=== PATIENT | female | born 1980 | race Caucasian/White ===

== ENCOUNTER 2025-05-12 06:12 | Observation (INO) ==
--- NOTE | 2025-04-15 15:32 | PAT Medication Instructions ---
Medication Instructions Date of Service April 15, 2025 Home Medications Medication Instructions Recorded blood-glucose meter (OneTouch #1 ea 11/18/21 Verio Flex Start kit) lidocaine 5 % topical ointment 1 applic topical BID PRN pain #30 12/24/21 grams epinephrine 0.3 mg/0.3 mL 0.3 mg (0.3 mL) IM Q10M PRN 09/21/22 injection, auto-injector (EpiPen) Anaphylaxis #2 ea lancets 33 gauge (OneTouch Delica #100 ea 07/13/23 Plus Lancet) syringe with needle, safety 3 mL #12 ea 10/09/23 25 gauge x 1" (BD Integra Syringe) Dexcom G6 Sensor (blood-glucose #3 ea 01/30/24 sensor) lorazepam 1 mg tablet 1 mg PO TID PRN anxiety #90 tabs 08/21/24 Dexcom G6 Transmitter #1 ea 08/27/24 (blood-glucose transmitter) blood sugar diagnostic (OneTouch #25 ea 09/12/24 Verio test strips) oxycodone 5 mg tablet 5 mg PO Q6H PRN pain #30 tabs 02/11/25 Ozempic 1 mg/dose (4 mg/3 mL) 1 mg (0.75 mL) subcut Q7D #9 mL 03/19/25 subcutaneous pen injector (semaglutide) esomeprazole magnesium 40 mg 40 mg PO BID #180 caps 03/25/25 capsule,delayed release linaclotide 145 mcg capsule 145 mcg PO DAILY #90 caps 03/25/25 (Linzess) sucralfate 1 gram tablet 1 g PO Q6H PRN acid reflux #360 03/25/25 tabs verapamil 120 mg tablet,extended 120 mg PO HS #90 tabs 03/25/25 release atorvastatin 40 mg tablet 40 mg PO HS #90 tabs 03/28/25 cyanocobalamin (vitamin B-12) 1,000 mcg subcut Q30D #10 mL 03/28/25 1,000 mcg/mL injection solution venlafaxine 75 mg capsule,extended 75 mg PO HS #90 caps 03/28/25 release 24 hr (Effexor XR) sucralfate 100 mg/mL oral 10 ml PO QID 3 months #3,600 mL 03/31/25 suspension (Carafate) amitriptyline 10 mg tablet 20 mg (2 x 10 mg) PO HS #180 tabs 04/01/25 estradiol 2 mg tablet 2 mg PO HS #90 tabs 04/02/25 famotidine 40 mg tablet 40 mg PO DAILY #90 tabs 04/04/25 ondansetron 4 mg disintegrating 4 mg PO Q8H PRN Nausea #30 tabs 04/06/25 tablet rimegepant 75 mg disintegrating 75 mg PO ONCE PRN migraine 04/06/25 tablet (Nurtec ODT) headache #8 tabs peg 3350-sod [id number] See Rx Instructions PO .COMPLEX #2 04/14/25 178.7-7.3-0.5-1.12-0.9 gram oral mL soln (Suflave) Medications albuterol sulfate 90 mcg/actuation aerosol inhaler (Ventolin HFA) 2 puff inhalation Q6H PRN Shortness Of Breath montelukast 10 mg tablet 10 mg PO QAM omalizumab 150 mg subcutaneous solution (Xolair) 300 mg subcut Q28D pregabalin 300 mg capsule 300 mg PO HS lidocaine 5 % topical ointment 1 applic topical BID PRN pain fluticasone fur. 100 mcg-umeclid 62.5 mcg-vilant 25 mcg inhalat.powder (Trelegy Ellipta) 1 inh inhalation HS epinephrine 0.3 mg/0.3 mL injection, auto-injector (EpiPen) 0.3 mg (0.3 mL) IM Q10M PRN Anaphylaxis pregabalin 100 mg capsule 100 mg PO BID theanine 100 mg capsule 400 mg PO HS lorazepam 1 mg tablet 1 mg PO TID PRN anxiety venlafaxine 150 mg capsule,extended release 24 hr 150 mg PO HS glucagon 3 mg/actuation nasal spray (Baqsimi) 3 mg intranasal UD PRN Hypoglycemia cholecalciferol (vitamin D3) 125 mcg (5,000 unit) tablet (Vitamin D3) 125 mcg PO DAILY celecoxib 200 mg capsule (Celebrex) 200 mg PO HS Pain oxycodone 5 mg tablet 5 mg PO Q6H PRN pain Ozempic 1 mg/dose (4 mg/3 mL) subcutaneous pen injector (semaglutide) 1 mg (0.75 mL) subcut Q7D esomeprazole magnesium 40 mg capsule,delayed release 40 mg PO BID linaclotide 145 mcg capsule (Linzess) 145 mcg PO DAILY sucralfate 1 gram tablet 1 g PO Q6H PRN acid reflux verapamil 120 mg tablet,extended release 120 mg PO HS atorvastatin 40 mg tablet 40 mg PO HS cyanocobalamin (vitamin B-12) 1,000 mcg/mL injection solution 1,000 mcg subcut Q30D venlafaxine 75 mg capsule,extended release 24 hr (Effexor XR) 75 mg PO HS sucralfate 100 mg/mL oral suspension (Carafate) 10 ml PO QID 3 months amitriptyline 10 mg tablet 20 mg (2 x 10 mg) PO HS estradiol 2 mg tablet 2 mg PO HS famotidine 40 mg tablet 40 mg PO DAILY ondansetron 4 mg disintegrating tablet 4 mg PO Q8H PRN Nausea rimegepant 75 mg disintegrating tablet (Nurtec ODT) 75 mg PO ONCE PRN migraine headache MEDICATION INSTRUCTIONS: Continue as directed cyanocobalamin (vitamin B-12) 1,000 mcg/mL injection solution 1,000 mcg subcut glucagon 3 mg/actuation nasal spray (Baqsimi) 3 mg intranasal UD PRN Hypoglycemia albuterol sulfate 90 mcg/actuation aerosol inhaler (Ventolin HFA) 2 puff inhalation Q6H PRN Shortness Of Breath (use if needed; BRING TO HOSPITAL) lidocaine 5 % topical ointment 1 applic topical BID PRN pain (do not apply after bathing prior to surgery) fluticasone fur. 100 mcg-umeclid 62.5 mcg-vilant 25 mcg inhalat.powder (Trelegy Ellipta) 1 inh inhalation HS epinephrine 0.3 mg/0.3 mL injection, auto-injector (EpiPen) 0.3 mg (0.3 mL) IM Q10M PRN Anaphylaxis rimegepant 75 mg disintegrating tablet (Nurtec ODT) 75 mg PO ONCE PRN migraine headache ASK your surgeon for instructions celecoxib 200 mg capsule (Celebrex) 200 mg PO HS Pain estradiol 2 mg tablet 2 mg PO HS STOP taking 2 weeks before surgery theanine 100 mg capsule 400 mg PO HS DO NOT take the morning of surgery sucralfate 1 gram tablet 1 g PO Q6H PRN acid reflux sucralfate 100 mg/mL oral suspension (Carafate) 10 ml PO QID cholecalciferol (vitamin D3) 125 mcg (5,000 unit) tablet (Vitamin D3) 125 mcg PO DAILY linaclotide 145 mcg capsule (Linzess) 145 mcg PO DAILY Take morning of surgery With a small sip of water, OTHERWISE NOTHING TO EAT OR DRINK AFTER MIDNIGHT: famotidine 40 mg tablet 40 mg PO DAILY montelukast 10 mg tablet 10 mg PO QAM ondansetron 4 mg disintegrating tablet 4 mg PO Q8H PRN Nausea oxycodone 5 mg tablet 5 mg PO Q6H PRN pain esomeprazole magnesium 40 mg capsule,delayed release 40 mg PO BID lorazepam 1 mg tablet 1 mg PO TID PRN anxiety pregabalin 100 mg capsule 100 mg PO BID Take evening before surgery amitriptyline 10 mg tablet 20 mg (2 x 10 mg) PO HS verapamil 120 mg tablet,extended release 120 mg PO HS venlafaxine 150 mg capsule,extended release 24 hr 150 mg PO HS venlafaxine 75 mg capsule,extended release 24 hr (Effexor XR) 75 mg PO HS pregabalin 300 mg capsule 300 mg PO HS atorvastatin 40 mg tablet 40 mg PO HS ondansetron 4 mg disintegrating tablet 4 mg PO Q8H PRN Nausea oxycodone 5 mg tablet 5 mg PO Q6H PRN pain esomeprazole magnesium 40 mg capsule,delayed release 40 mg PO BID lorazepam 1 mg tablet 1 mg PO TID PRN anxiety pregabalin 100 mg capsule 100 mg PO BID sucralfate 1 gram tablet 1 g PO Q6H PRN acid reflux sucralfate 100 mg/mL oral suspension (Carafate) 10 ml PO QID Other Notes As discussed during RN phone call, last dose to be 05/03/25 of: Ozempic 1 mg/dose (4 mg/3 mL) subcutaneous pen injector (semaglutide) 1 mg (0.75 mL) subcut Q7D ASK your prescriber for instructions: omalizumab 150 mg subcutaneous solution (Xolair) 300 mg subcut Q28D If you have any questions please call us at [phone] or [phone] or [phone] or [phone]
--- NOTE | 2025-04-22 10:46 | Anesthesiology Consultation ---
Date of Service April 22, 2025 Assessment & Plan (1) Encounter for pre-operative examination: - Check BSG DOS - Infectious disease screening: Per assessment on 04/22/25- No known recent infectious disease contacts or current infectious disease symptoms. - GLP-1 medication instructions: Patient informed by PAT to stop 7 days prior to surgery- voiced understanding. DOS 05/12. Advised last dose to be 05/03. - S/P Removal SCS (02/11/25): Grade 2 view, MAC#3, ETT 7.0 at [facility] - Awaiting surgeon-ordered PCP preop evaluation ([facility], appt done 04/22- note in draft). Patient otherwise acceptable risk for surgery. Chart Review Chart Review: Patient seen in Pre Admission Testing Teaching & Discussion Pre-Anesthesia Teaching/Discussion Notes: Instructed NPO after midnight before surgery,except medications with 15 cc of water. Medication instructions provided according to the PAT guidelines. History Surgery Operation Date: 05/12/25 13:25 Proposed Procedures p C6-C7 Anterior Cervical Discectomy and Fusion - Darío Siu DO Height/Weight Height: 5 ft 4 in Weight: 89.3 kg Allergies Allergy/AdvReac Type Severity Reaction Status Date / Time banana Allergy Severe Anaphylaxis Verified 04/22/25 08:15 kiwi Allergy Severe Anaphylaxis Verified 04/22/25 08:15 venom-honey bee Allergy Severe Anaphylaxis Verified 04/22/25 08:15 watermelon Allergy Severe Anaphylaxis Verified 04/22/25 08:15 latex Allergy Intermediate Rash Verified 04/22/25 08:15 Medications Home Medications Medication Instructions Recorded Confirmed Last Taken albuterol sulfate 90 mcg/actuation 2 puff inhalation Q6H PRN 06/28/21 04/22/25 2 Days Ago aerosol inhaler (Ventolin HFA) Shortness Of Breath ~02/09/25 montelukast 10 mg tablet 10 mg PO QAM 06/28/21 04/22/25 02/10/25 06:00 omalizumab 150 mg subcutaneous 300 mg subcut Q28D 06/28/21 04/22/25 3 Weeks Ago solution (Xolair) ~01/21/25 pregabalin 300 mg capsule 300 mg PO HS 06/30/21 04/16/25 02/10/25 21:00 blood-glucose meter (CodeshipTouch #1 ea 11/18/21 04/16/25 Unknown Verio Flex Start kit) lidocaine 5 % topical ointment 1 applic topical BID PRN pain #30 12/24/21 04/16/25 3 Weeks Ago grams ~01/21/25 fluticasone fur. 100 mcg-umeclid 1 inh inhalation HS 05/25/22 04/22/25 02/10/25 21:00 62.5 mcg-vilant 25 mcg inhalat.powder (Trelegy Ellipta) epinephrine 0.3 mg/0.3 mL 0.3 mg (0.3 mL) IM Q10M PRN 09/21/22 04/22/25 06/11/24 injection, auto-injector (EpiPen) Anaphylaxis #2 ea lancets 33 gauge (OneTouch Delica #100 ea 07/13/23 04/16/25 Unknown Plus Lancet) syringe with needle, safety 3 mL #12 ea 10/09/23 04/16/25 Unknown 25 gauge x 1" (BD Integra Syringe) pregabalin 100 mg capsule 100 mg PO BID 01/11/24 04/22/25 02/10/25 14:00 theanine 100 mg capsule 400 mg PO HS 01/11/24 04/22/25 02/10/25 21:00 Dexcom G6 Sensor (blood-glucose #3 ea 01/30/24 04/16/25 Unknown sensor) lorazepam 1 mg tablet 1 mg PO TID PRN anxiety #90 tabs 08/21/24 04/22/25 02/10/25 21:00 venlafaxine 150 mg 150 mg PO HS 08/21/24 04/22/25 02/10/25 21:00 capsule,extended release 24 hr Dexcom G6 Transmitter #1 ea 08/27/24 04/16/25 Unknown (blood-glucose transmitter) glucagon 3 mg/actuation nasal 3 mg intranasal UD PRN Hypoglycemia 09/09/24 04/22/25 Unknown spray (Baqsimi) blood sugar diagnostic (OneTouch #25 ea 09/12/24 04/16/25 Unknown Verio test strips) celecoxib 200 mg capsule (Celebrex) 200 mg PO HS Pain 01/28/25 04/22/25 02/10/25 21:00 Ozempic 1 mg/dose (4 mg/3 mL) 1 mg (0.75 mL) subcut Q7D #9 mL 03/19/25 04/22/25 Unknown subcutaneous pen injector (semaglutide) esomeprazole magnesium 40 mg 40 mg PO BID #180 caps 03/25/25 04/22/25 Unknown capsule,delayed release linaclotide 145 mcg capsule 145 mcg PO DAILY #90 caps 03/25/25 04/22/25 Unknown (Linzess) verapamil 120 mg tablet,extended 120 mg PO HS #90 tabs 03/25/25 04/22/25 Unknown release atorvastatin 40 mg tablet 40 mg PO HS #90 tabs 03/28/25 04/22/25 Unknown cyanocobalamin (vitamin B-12) 1,000 mcg subcut Q30D #10 mL 03/28/25 04/22/25 Unknown 1,000 mcg/mL injection solution venlafaxine 75 mg capsule,extended 75 mg PO HS #90 caps 03/28/25 04/22/25 Unknown release 24 hr (Effexor XR) sucralfate 100 mg/mL oral 10 ml PO QID 3 months #3,600 mL 03/31/25 04/22/25 Unknown suspension (Carafate) amitriptyline 10 mg tablet 20 mg (2 x 10 mg) PO HS #180 tabs 04/01/25 04/22/25 Unknown estradiol 2 mg tablet 2 mg PO HS #90 tabs 04/02/25 04/22/25 Unknown ondansetron 4 mg disintegrating 4 mg PO Q8H PRN Nausea #30 tabs 04/06/25 04/22/25 Unknown tablet rimegepant 75 mg disintegrating 75 mg PO ONCE PRN migraine 04/06/25 04/22/25 Unknown tablet (Nurtec ODT) headache #8 tabs peg 3350-sod [id number] See Rx Instructions PO .COMPLEX #2 04/14/25 Unknown 178.7-7.3-0.5-1.12-0.9 gram oral mL soln (Suflave) buprenorphine HCl 300 mcg buccal 300 mcg buccal Q12H 04/16/25 04/22/25 Unknown film (Belbuca) oxycodone 5 mg tablet 5 mg PO BID PRN Breakthrough Pain 04/16/25 04/22/25 Unknown cholecalciferol (vitamin D3) 125 250 mcg PO DAILY 04/22/25 04/22/25 Unknown mcg (5,000 unit) tablet (Vitamin D3) famotidine 40 mg tablet 40 mg PO BID 04/22/25 Unknown ferrous sulfate 325 mg (65 mg 325 mg PO DAILY 04/22/25 04/22/25 Unknown iron) tablet,delayed release Past Medical History Medical History Abnormal weight gain Anastomotic ulcer Anemia s/p iron infusions in past no recent issues Anxiety and depression Arthritis Asthma Cervicalgia Chronic back pain Diabetes mellitus, type 2 Fibromyalgia GERD (gastroesophageal reflux disease) well controlled and stable History of blood transfusion x2, after and after hysterectomy (required 5 units post up due to heavy bleeding) History of CVA with residual deficit (05/21/22) Received tPA in ED; no residual effects Follows with [facility] History of kidney stones No recent issues HLD (hyperlipidemia) Hx of renal calculi Hypoglycemia after GI (gastrointestinal) surgery IBS (irritable bowel syndrome) Intermittent palpitations R/t anxiety per patient Migraine Mild sleep apnea No device Neuropathy Hands/feet Peptic ulcer disease Postsurgical dumping syndrome After gastric bypass surgery "directly coorelated with my diabetic problems" per records PTSD (post-traumatic stress disorder) Restless leg syndrome Seasonal allergies Exercise / Class Metabolic Activity II 4-5 Yardwork/Stairs/Walk up hill (one FS: No CP, no SOB) Past Family History Family History Mother Diabetes DM Type 2 Family history of reaction to anesthesia vomiting Father Diabetes DM Type 2 Heart disease Hypertension Grandfather (Paternal) Diabetes DM Type 2 Grandmother (Maternal) Diabetes DM Type 2 Grandmother (Paternal) Hypertension Aunt Hypertension Grandfather (Maternal) Bone cancer Family/Other Breast cancer Maternal Great Aunt Other Cancer Denies family history of Ovarian cancer Prostate cancer Myocardial infarction Colorectal cancer Past Surgical History Surgical History H/O cystoscopy x4 H/O gastric bypass (2014) diane-en-y H/O lumbar discectomy (2023) laminectomy and discectomy H/O tubal ligation x2 H/O: x4 History of anesthesia reaction slow to wake up History of cardiac cath 2014- [facility] prior to gastric bypass, no stents 2018- no stents History of cholecystectomy History of colonoscopy (12/08/20) History of dilatation and curettage x3 History of esophagogastroduodenoscopy (EGD) (10/16/24) History of hysterectomy (2018) History of lithotripsy History of lumbar spinal fusion (2007) L5-S1, 2008 History of placement of ear tubes History of radiofrequency ablation (RFA) of nerve of cervical spine x4 History of reversal of tubal ligation History of tonsillectomy and adenoidectomy History of total hysterectomy with bilateral salpingo-oophorectomy (BSO) History of wisdom tooth extraction Previous back surgery nerve blocks S/P cubital tunnel release left elbow Spinal cord stimulator status (09/13/24) x6 surgeries total Removal SCS (02/11/25): Grade 2 view, MAC#3, ETT 7.0 at [facility] Past Anesthesia History No Family Hx of Anesthesia Complications and Other (Slow to wake) History of PONV No Hx of PONV and No Hx of Motion Sickness Social History Smoking Status: Current every day smoker tobacco type: cigarettes Smoking cigarettes per day: 1 PPD Do You Dip or Chew Tobacco: No Hx Alcohol Use: No Hx Substance Use: No substance use type: does not use Review of Systems Patient denies chest pain, shortness of breath, dyspnea on exertion, fever, chills, cough, wheezing, palpitations. Physical Exam Vital Signs BP 106/67 P 71 TEMP 98.0 SP02 96%RA RESP 16 Physical Full cervical extension range of motion. Full TMJ range of motion. TMD > 3.5 finger breaths Mallampati Score I Dentition: intact Lungs: clear throughout to auscultation Cardiac: regular rate and rhythm, no murmurs noted Spine: normal Carotid arteries: negative bruit Extremities: no LE edema Lab Results Anesthesia Preop Results Results Anesthesia Widget: WBC 9.79 K/ul (4.8-10.8) 04/22/25 Hgb 12.9 g/dl (12.0-16.0) 04/22/25 Hct 38.4 % (37.0-47.0) 04/22/25 Plt 282 K/uL (130-400) 04/22/25 Na 138 mmol/L (136-145) 04/22/25 K 3.8 mmol/L (3.5-5.1) 04/22/25 Cl 104 mmol/L (98-107) 04/22/25 CO2 27 mmol/L (21-32) 04/22/25 BUN 13 mg/dl (6-23) 04/22/25 Creat 0.58 mg/dl (0.6-1.2) L 04/22/25 Glucose Level 93 mg/dl (70-99(Fasting)) 04/22/25 PT 10.0 Seconds (9.0-12.0) 04/22/25 PTT 27 Seconds (21-31) 04/22/25 INR 0.9 (0.9-1.1) 04/22/25 HA1c 6.1 % (4.5-5.6) H 04/22/25 Blood Type A Positive 04/22/25 Antibody Screen NEGATIVE 04/22/25 Testing Electrocardiogram Date: 01/28/25 NSR at 66bpm. Low voltage QRS. Chest X-Ray Date: 09/04/24 Findings: + NAD Stress Test Date: 03/21/23 Type: DSE Negative DSE/stress ECG negative for ischemia at 85% MPHR. Normal resting LV size and function. No significant valvular pathology. Other Testing CT Thorax Date: 10/28/24 CT of chest negative for acute traumatic abnormality. Abdomen/Pelvis CT Date: 01/28/25 IMPRESSION: Status post Diane-en-Y gastric bypass. Outpouching of the proximal jejunum with adjacent inflammation, just distal to the gastrojejunal anastomosis. This likely represents a marginal ulcer. No free air. No fluid collection. No evidence for a bowel obstruction. No additional sites of inflammation. Cervical spine MRI Date: 01/17/25 IMPRESSION: Posterior annular disc bulge at C6-C7 is eccentric to the right neural foramen. This causes mild central canal with moderate right lateral recess narrowing. Normal signal of the cervical spinal cord.
[2025-05-12] MEDS: LR 60ML/HR IV SCH (06:56)
[2025-05-12] MEDS: GABAPENTIN 900 MG DOSE PO SCH (06:57)
[2025-05-12] MEDS: LR 15ML/HR IV SCH (06:57)
[2025-05-12] MEDS: ACETAMINOPHEN 500 MG TAB PO SCH (06:57)
[2025-05-12] MEDS: CeleBREX 200 MG CAP PO SCH (06:57)
[2025-05-12] MEDS ORDERED: GLYCOPYRROLATE 0.2 MG/ML VIAL ONE (07:12)
[2025-05-12] MEDS ORDERED: ROCURONIUM BROMIDE 10 MG/ML 5 ML VIAL IV ONE (07:12)
[2025-05-12] MEDS ORDERED: MIDAZOLAM HCL 1 MG/ML 2ML VIAL ONE (07:12)
[2025-05-12] MEDS ORDERED: PROPOFOL IV EMULSION 10 MG/ML 20 ML VIAL IV ONE (07:12)
[2025-05-12] MEDS ORDERED: DEXAMETHASONE SOD INJ 4 MG/ML VIAL ONE (07:12)
[2025-05-12] MEDS ORDERED: ONDANSETRON INJ 2 MG/ML 2 ML VIAL ONE (07:12)
[2025-05-12] MEDS ORDERED: LIDOCAINE 2% 2 ML VIAL/AMP(20MG/ML) INFIL ONE (07:12)
[2025-05-12] MEDS ORDERED: SUGAMMADEX SODIUM 200 MG/2 ML VIAL IV ONE (07:15)
[2025-05-12] MEDS ORDERED: ATROPINE SULFATE 0.1 MG/ML 10ML SYR IV PRN (07:22)
[2025-05-12] MEDS ORDERED: ONDANSETRON INJ 2 MG/ML 2 ML VIAL IV PRN ×2 (07:22→10:53)
--- NOTE | 2025-05-12 07:30 | History & Physical Bridge Note ---
Date of Service May 12, 2025 History & Physical Bridge Note I have examined the patient, reviewed the History & Physical and in the interval since the performance of the History & Physical I have noted the following changes of clinical significance: no changes noted
--- NOTE | 2025-05-12 07:31 | History & Physical Report ---
Date of Service May 12, 2025 Assessment & Plan (1) Cervical spondylosis with radiculopathy: Plan: C6-C7 anterior cervical discectomy and fusion History of Present Illness Chief Complaint: Neck and arm pain Primary Care Provider: MAMADOU La This is a 45-year-old female presents for persistent neck and arm pain after failing course of nonoperative care is here for surgical invention. Allergies Allergy/AdvReac Type Severity Reaction Status Date / Time banana Allergy Severe Anaphylaxis Verified 05/12/25 06:34 kiwi Allergy Severe Anaphylaxis Verified 05/12/25 06:34 venom-honey bee Allergy Severe Anaphylaxis Verified 05/12/25 06:34 watermelon Allergy Severe Anaphylaxis Verified 05/12/25 06:34 latex Allergy Intermediate Rash Verified 05/12/25 06:34 Home Medications Medication Instructions Recorded Confirmed Type albuterol sulfate 90 mcg/actuation 2 puff inhalation Q6H PRN 06/28/21 05/12/25 History aerosol inhaler (Ventolin HFA) Shortness Of Breath montelukast 10 mg tablet 10 mg PO QAM 06/28/21 05/12/25 History omalizumab 150 mg subcutaneous 300 mg subcut Q28D 06/28/21 05/12/25 History solution (Xolair) pregabalin 300 mg capsule 300 mg PO HS 06/30/21 05/12/25 History blood-glucose meter ([email or web address] #1 ea 11/18/21 04/16/25 Rx Verio Flex Start kit) lidocaine 5 % topical ointment 1 applic topical BID PRN pain #30 12/24/21 05/12/25 Rx grams fluticasone fur. 100 mcg-umeclid 1 inh inhalation HS 05/25/22 05/12/25 History 62.5 mcg-vilant 25 mcg inhalat.powder (Trelegy Ellipta) epinephrine 0.3 mg/0.3 mL 0.3 mg (0.3 mL) IM Q10M PRN 09/21/22 05/12/25 Rx injection, auto-injector (EpiPen) Anaphylaxis #2 ea lancets 33 gauge (OneTouch Delica #100 ea 07/13/23 04/16/25 Rx Plus Lancet) syringe with needle, safety 3 mL #12 ea 10/09/23 04/16/25 Rx 25 gauge x 1" (BD Integra Syringe) pregabalin 100 mg capsule 100 mg PO BID 01/11/24 05/12/25 History theanine 100 mg capsule 400 mg PO HS 01/11/24 05/12/25 History Dexcom G6 Sensor (blood-glucose #3 ea 01/30/24 04/16/25 Rx sensor) lorazepam 1 mg tablet 1 mg PO TID PRN anxiety #90 tabs 08/21/24 05/12/25 Rx venlafaxine 150 mg 150 mg PO HS 08/21/24 05/12/25 History capsule,extended release 24 hr Dexcom G6 Transmitter #1 ea 08/27/24 04/16/25 Rx (blood-glucose transmitter) glucagon 3 mg/actuation nasal 3 mg intranasal UD PRN Hypoglycemia 09/09/24 05/12/25 History spray (Baqsimi) blood sugar diagnostic (OneTouch #25 ea 09/12/24 04/16/25 Rx Verio test strips) celecoxib 200 mg capsule (Celebrex) 200 mg PO HS Pain 01/28/25 05/12/25 History Ozempic 1 mg/dose (4 mg/3 mL) 1 mg (0.75 mL) subcut Q7D #9 mL 03/19/25 05/12/25 Rx subcutaneous pen injector (semaglutide) linaclotide 145 mcg capsule 145 mcg PO DAILY #90 caps 03/25/25 05/12/25 Rx (Linzess) verapamil 120 mg tablet,extended 120 mg PO HS #90 tabs 03/25/25 05/12/25 Rx release atorvastatin 40 mg tablet 40 mg PO HS #90 tabs 03/28/25 05/12/25 Rx cyanocobalamin (vitamin B-12) 1,000 mcg subcut Q30D #10 mL 03/28/25 05/12/25 Rx 1,000 mcg/mL injection solution venlafaxine 75 mg capsule,extended 75 mg PO HS #90 caps 03/28/25 05/12/25 Rx release 24 hr (Effexor XR) sucralfate 100 mg/mL oral 10 ml PO QID 3 months #3,600 mL 03/31/25 05/12/25 Rx suspension (Carafate) amitriptyline 10 mg tablet 20 mg (2 x 10 mg) PO HS #180 tabs 04/01/25 05/12/25 Rx estradiol 2 mg tablet 2 mg PO HS #90 tabs 04/02/25 05/12/25 Rx ondansetron 4 mg disintegrating 4 mg PO Q8H PRN Nausea #30 tabs 04/06/25 05/12/25 Rx tablet rimegepant 75 mg disintegrating 75 mg PO ONCE PRN migraine 04/06/25 05/12/25 Rx tablet (Nurtec ODT) headache #8 tabs peg 3350-sod [id number] See Rx Instructions PO .COMPLEX #2 04/14/25 05/12/25 Rx 178.7-7.3-0.5-1.12-0.9 gram oral mL soln (Suflave) buprenorphine HCl 300 mcg buccal 300 mcg buccal Q12H 04/16/25 05/12/25 History film (Belbuca) oxycodone 5 mg tablet 5 mg PO BID PRN Breakthrough Pain 04/16/25 05/12/25 History cholecalciferol (vitamin D3) 125 250 mcg PO DAILY 04/22/25 05/12/25 History mcg (5,000 unit) tablet (Vitamin D3) famotidine 40 mg tablet 40 mg PO BID 04/22/25 05/12/25 History ferrous sulfate 325 mg (65 mg 325 mg PO DAILY 04/22/25 05/12/25 History iron) tablet,delayed release esomeprazole magnesium 40 mg 40 mg PO BID 05/12/25 05/12/25 History capsule,delayed release (Nexium) Past Med/Surg History Problem List (Updated 05/12/25 @ 07:30 by Darío Siu DO) Cervical spondylosis with radiculopathy Encounter for pre-operative examination Failed spinal cord stimulator Iron deficiency anemia Chronic GERD Migraine with aura IBS (irritable bowel syndrome) Cervicalgia Lumbar post-laminectomy syndrome Sacroiliitis Hyperlipidemia associated with type 2 diabetes mellitus Obesity, Class III, BMI 40-49.9 (morbid obesity) Menopause PLMD (periodic limb movement disorder) Depression Anxiety Hypoglycemia unawareness associated with type 2 diabetes mellitus (Chronic) Fibromyalgia Chronic back pain (Acute) Post traumatic stress disorder Asthma Cervical radiculopathy at C6 (Chronic) Medical History Abnormal weight gain Anastomotic ulcer Anemia s/p iron infusions in past no recent issues Anxiety and depression Arthritis Asthma Cervicalgia Chronic back pain Diabetes mellitus, type 2 Fibromyalgia GERD (gastroesophageal reflux disease) well controlled and stable History of blood transfusion x2, after and after hysterectomy (required 5 units post up due to heavy bleeding) History of CVA with residual deficit (05/21/22) Received tPA in ED; no residual effects Follows with [place] neuro History of kidney stones No recent issues HLD (hyperlipidemia) Hx of renal calculi Hypoglycemia after GI (gastrointestinal) surgery IBS (irritable bowel syndrome) Intermittent palpitations R/t anxiety per patient Migraine Mild sleep apnea No device Neuropathy Hands/feet Peptic ulcer disease Postsurgical dumping syndrome After gastric bypass surgery "directly coorelated with my diabetic problems" per records PTSD (post-traumatic stress disorder) Restless leg syndrome Seasonal allergies Surgical History H/O cystoscopy x4 H/O gastric bypass (2014) keiry-[id number] H/O lumbar discectomy (2023) laminectomy and discectomy H/O tubal ligation x2 H/O: x4 History of anesthesia reaction slow to wake up History of cardiac cath 2014- [facility] [place] prior to gastric bypass, no stents 2017- no stents History of cholecystectomy History of colonoscopy (12/08/20) History of dilatation and curettage x3 History of esophagogastroduodenoscopy (EGD) (10/16/24) History of hysterectomy (2017) History of lithotripsy History of lumbar spinal fusion (2007) L5-S1, 2008 History of placement of ear tubes History of radiofrequency ablation (RFA) of nerve of cervical spine x4 History of reversal of tubal ligation History of tonsillectomy and adenoidectomy History of total hysterectomy with bilateral salpingo-oophorectomy (BSO) History of wisdom tooth extraction Previous back surgery nerve blocks S/P cubital tunnel release left elbow Spinal cord stimulator status (09/13/24) x6 surgeries total Removal SCS (02/11/25): Grade 2 view, MAC#3, ETT 7.0 at [facility] Family History Mother Diabetes DM Type 2 Family history of reaction to anesthesia vomiting Father Diabetes DM Type 2 Heart disease Hypertension Grandfather (Paternal) Diabetes DM Type 2 Grandmother (Maternal) Diabetes DM Type 2 Grandmother (Paternal) Hypertension Aunt Hypertension Grandfather (Maternal) Bone cancer Family/Other Breast cancer Maternal Great Aunt Other Cancer Denies family history of Ovarian cancer Prostate cancer Myocardial infarction Colorectal cancer Social History Smoking Status: Current every day smoker Tobacco Type: Cigarettes Age Started Using Tobacco: 12; packs per day: 1; Cigarettes Per Day: 1 PPD; Second Hand Exposure: No; Do You Dip or Chew Tobacco: No; Tobacco Cessation Education Requested by Patient: No Hx Alcohol Use: No Hx Substance Use: No Preferred Language: Citizen Of [place] Communication Ability: Effective Visual Impairment: No Limitations System Sales Consultant Required: No Beliefs That Will Affect Care: None marital status: Current Living Situation: Spouse and Family Current Living Situation Comment: Lives with and 4 kids current occupational status: disabled current occupation: health care admin How many Children do You have: 4 Other Information That Helps Us Care for You: No Feels Safe at Home: Yes Safety Concerns: Feels Safe At This Time Childhood Exposure to Second-Hand Smoke: No Dental Care, Regularly: Yes Sunscreen Use: No Assistive Devices: Contacts and Glasses Physical Exam Physical Exam: Patient is alert and oriented Heart regular rhythm Lungs clear Results & Data Results & Data Vital Signs (Past 12 Hours) Vital Signs Temp Pulse Resp BP Pulse Ox O2 Del Method 05/12/25 06:42 36.8 C 67 20 121/65 98 Room Air
[2025-05-12] MEDS: ceFAZolin 330 MG/ML 1 GM VIAL ONE (08:21)
[2025-05-12] MEDS: FLOSEAL HEMOSTATIC MATRIX 10ML TOP ONE (08:37)
--- NOTE | 2025-05-12 08:45 | Operative Report ---
Post Operative Report Pre & Post Diagnosis Operation Date: 05/12/25 07:45 Pre-Op Diagnosis: #1 cervical spondylosis with radiculopathy #2 cervical disc herniation with radiculopathy C6-C7 Post-Op Diagnosis: Same I identified the patient and participated in the time-out.: Yes Procedure Operation Date: 05/12/25 07:45 Actual Procedures #1 anterior cervical discectomy with bilateral foraminotomies C6-C7. #2 anterior cervical arthrodesis C6-C7. #3 placed respiratory millimeter cage filled with os design bone graft C6-C7. #4 application of K2 and plate and screws across C6-C7. Surgeon Darío Siu, Drawing Press Operator Veronica Duran Estimated Blood Loss 20 Findings Consistent with Post-Op Diagnosis Specimens None Indications This is a 45-year-old female well-known to the presents problems diagnosis of failed course of nonoperative care is here for surgical invention. Description of Procedure Patient was met with identified informed consent obtained. Patient was then taken to the operative suite underwent intubation placed in spine position ingestible head Pappas head neck surgeon. All bony prominences well-padded eyes inspected to ensure no external pressure placed upon them. This point the anterior cervical spine was prepped and draped in sterile fashion. The assistance of fluoroscopy identified the C6-C7 disc space and a transverse incision was placed along the right anterior aspect of the cervical spine overlying this region. Blunt dissection with the assistance of bipolar electrocautery was performed down to and exposing the anterior cervical spine from C6-C7. Self-retaining retractors placed. Informed complete discectomy at the C6-C7 out to the uncovertebral joints bilaterally. [place] distraction pins utilized to assist in visualization. Removed all posterior annular fibers longitudinal ligament bilateral foraminotomies performed. Endplates burred to subcortical bleeding bone. An 8 mm spiral cage filled with loss design bone graft tapped in position. Distracting apparatus was removed. K2 M plate screws applied with the assistance of fluoroscopy. Incision was then helen irrigated and explored to ensure no damage to surrounding structures or remaining bleeding. 10 round DEONNA drain inserted. The incision was then closed with 2-0 Vicryl in the fascia and a 4 Monocryl for final skin closure. Steri-Strips sterile dressing placed. Patient waken taken PACU in stable condition. Please note spinal cord monitoring visualized at the procedure no changes noted. Veronica Duran was present at the entire surgery and while the patient positioning complex portion of the surgery and final skin closure. I attest to the content of the Intraoperative Record and any orders documented therein. Any exceptions are noted below.
[2025-05-12] MEDS: HYDROmorphone INJ 2 MG/ML SYR/VIAL IV PRN (09:05)
--- NOTE | 2025-05-12 09:30 | Fluoroscopy Report ---
FL cervical 2-3V CLINICAL HISTORY: C6-C7 D/F COMPARISON STUDY: None FLUOROSCOPY TIME: 16 seconds FLUOROSCOPY IMAGES: 4 EXPOSURE DOSE: 3 mGy FINDINGS: Fluoroscopy was provided for anterior plate-screw fusion of C6-7. IMPRESSION: Intraoperative fluoroscopy. ACT 112: Negative or not required by law. Electronically signed by: Yair Raymundo M.D. 05/12/2025 9:29 AM
[2025-05-12] MEDS: HYDROmorphone INJ 1 MG/ML SYRINGE ONE (09:55)
[2025-05-12] MEDS ORDERED: HYDROmorphone INJ 0.5 MG/0.5 ML SYR IV PRN ×2 (09:56→10:53)
[2025-05-12] MEDS ORDERED: dexAMETHasone 8 MG in SYRINGE 0 ML IV PRN (10:53)
[2025-05-12] MEDS ORDERED: diphenhydrAMINE Capsule 25 MG CAP PO PRN (10:53)
[2025-05-12] MEDS ORDERED: PHARMACY GLYCEMIC MGMT CONSULT PRN (10:53)
[2025-05-12] MEDS ORDERED: ALUMINUM/MAGNESIUM SUSP 30 ML UDC PO PRN (10:53)
[2025-05-12] MEDS ORDERED: MAGNESIUM HYDROXIDE SUSP 30 ML UDC PO PRN (10:53)
[2025-05-12] MEDS ORDERED: DO NOT ADMINISTER FLU VACCINE PRN (10:53)
[2025-05-12] MEDS ORDERED: ONDANSETRON 4 MG OD TAB PO PRN (10:53)
[2025-05-12] MEDS ORDERED: PROMETHAZINE 12.5 MG/50.5 ML BAG IV PRN (10:53)
[2025-05-12] MEDS ORDERED: RACEPINEPHRINE 2.25% NEBU SOLN 0.5 ML VIAL INH PRN (10:53)
[2025-05-12] MEDS ORDERED: SOD PHOSPHATE/SOD BIPHOSPHATE ENEMA 132 ML BTL PR PRN (10:53)
[2025-05-12] MEDS ORDERED: METOCLOPRAMIDE HCL INJ 5 MG/ML 2 ML VIAL IV PRN (10:53)
[2025-05-12] MEDS ORDERED: NON-FORMULARY MEDICATION (Peg 3350-Sod Sulf,Chlr-Pot-Mag [Suflave] 178.7-7.3-0.5 gram reco PO SCH (10:53)
[2025-05-12] MEDS ORDERED: NALOXONE HCL 0.4 MG/1 ML VIAL/CARP IV PRN (10:53)
[2025-05-12] MEDS ORDERED: ACETAMINOPHEN 1,000 MG/100 ML VIAL IV PRN (10:53)
[2025-05-12] MEDS ORDERED: DO NOT ADMINISTER PNEUMOCOCCAL VACCINE PRN (10:53)
[2025-05-12] MEDS ORDERED: ALBUTEROL HFA 8 GM INHALER INH PRN (10:53)
[2025-05-12] MEDS ORDERED: EPINEPHrine INJ 1 MG/ML AMP IM PRN (11:12)
--- NOTE | 2025-05-12 11:21 | Hospitalist Consultation ---
Date of Consultation May 12, 2025 Assessment & Plan (1) Cervical spondylosis with radiculopathy: (2) Chronic GERD: (3) Asthma: (4) Hyperlipidemia associated with type 2 diabetes mellitus: Plan Saskia is a pleasant 45-year-old female with past medical history of cervicalgia, complex migraine/stroke in May 2022, chronic lumbar back pain, cervical radiculopathy, fibromyalgia, T2DM, moderate persistent asthma, BALDOMERO, GERD, anastomotic ulcer, mixed IBS, dyslipidemia, anxiety, depression, B12 deficiency. She presented for C6-C7 anterior cervical discectomy and fusion with Dr. Siu on 05/12/2025. #Cervicalgia / S/p C6-C7 anterior cervical discectomy and fusion - Pain regimen, VTE prophylaxis, activity level, discharge planning per primary team - Currently requiring supplemental O2 at 2 L to maintain oxygen saturation - likely secondary to anesthesia - Wean O2 as able to maintain sat >90%. Use incentive spirometer Q1HWA - Added CBC to a.m. labs #GERD/anastomotic ulcer - Continue Nexium 40 mg BID, Pepcid 40 mg BID, Carafate 1 g ACHS - Recommend avoiding NSAIDs and cautious use with steroids #T2DM - A1c 6.1% in April 2025 - Outpatient regimen of Ozempic 1 mg once weekly - Pharmacy glycemic management consulted #Moderate persistent asthma - Continue Xolair, Trelegy daily, albuterol PRN, Singulair - Smokes 1 PPD - ordered nicotine patch while inpatient #Complex migraine - concern for stroke in May 2022 and received TNK, however workup was negative including head CT, brain MRI, telemetry monitoring, echocardiogram, 30-day event monitor; ultimately thought to be a flare of her complex migraine - Continue verapamil ER 120 mg daily for migraine prevention - Continue aspirin when ok by primary team #Chronic lumbar back pain/fibromyalgia Continue Lyrica 100 mg BID, Lyrica 300 mg HS, Subutex 300 mcg daily, and amitriptyline 20 mg daily #BALDOMERO - no longer uses CPAP due to weight loss after gastric bypass. Recent sleep study revealed very mild sleep apnea without oxygen desaturation #Mixed IBS continue Linzess #Dyslipidemia continue Lipitor 40 mg daily #Depression/anxiety continue bupropion 75 mg daily, Effexor 225 mg daily Patient's and mother were updated at bedside. Reviewed outpatient records. Hospital medicine will continue to follow. Please reach out with any questions or concerns. Supervising Physician Co-Signing Physician Notes PA Supervision Note: I personally saw and examined the patient. I verified all galvna points and agree with ALYSA Fuentes with the following exceptions and/or additions: S-Pt her post-op rom cervical spine discectomy and fusion Having some pain in neck. History and ROS otherwise reviewed as above O- Vitals reviewed Gen: [AAOx3, NAD] HEENT: [anicteric sclerae, EOMI] CV: [RRR no mgr nl S1S2] Pulm: [CTAB no wcr] Abd: [+BS soft NT ND no masses or hernias] Ext: [no edema, 2+ DP pulses] Skin: [no rashes, warm/dry] Neuro: [full strength throughout] A/P-45 yo female here with C-spine surgery pain control, continue current home meds will follow History of Present Illness Reason for Consultation: medical management Requesting Physician: Darío Siu DO Attending Physician: Darío Siu DO History of Present Illness Saskia is a pleasant 45-year-old female with past medical history of cervicalgia, complex migraine/stroke in May 2022, chronic lumbar back pain, cervical radiculopathy, fibromyalgia, T2DM, moderate persistent asthma, BALDOMERO, GERD, anastomotic ulcer, mixed IBS, dyslipidemia, anxiety, depression, B12 def iciency. She presented for C6-C7 anterior cervical discectomy and fusion with Dr. Siu on 05/12/2025. Per review of operative report, EBL was listed as 20 cc, and there were no complications noted. Per review of patient's vitals postop, she has been requiring supplemental oxygen at 2 L NC; vitals otherwise stable. Patient reports that her pain is 6/10 at time of consult. She notes the pain is most prominent at her right-sided anterior neck and radiates to her right ear and right chest wall. She denies any true chest pain. She states her headache is more from radiating neck pain. She denies any difficulty swallowing or breathing. She denies any paresthesias in her UE or LE bilaterally. She reports she is eating clear liquids and drinking okay since the procedure, and has no new complaints at this time. She denies any recent change in medications. She does not use supplemental oxygen at baseline. No CPAP at night. She is currently requiring supplemental O2 to maintain her oxygen saturation - likely secondary to anesthesia. She smokes 1 ppd and would like a nicotine patch while inpatient. Patient's and mother were present at bedside during this visit. Allergies Allergy/AdvReac Type Severity Reaction Status Date / Time banana Allergy Severe Anaphylaxis Verified 05/12/25 06:34 kiwi Allergy Severe Anaphylaxis Verified 05/12/25 06:34 venom-honey bee Allergy Severe Anaphylaxis Verified 05/12/25 06:34 watermelon Allergy Severe Anaphylaxis Verified 05/12/25 06:34 latex Allergy Intermediate Rash Verified 05/12/25 06:34 Home Medications Medication Instructions Recorded Confirmed Type albuterol sulfate 90 mcg/actuation 2 puff inhalation Q6H PRN 06/28/21 05/12/25 History aerosol inhaler (Ventolin HFA) Shortness Of Breath montelukast 10 mg tablet 10 mg PO QAM 06/28/21 05/12/25 History omalizumab 150 mg subcutaneous 300 mg subcut Q28D 06/28/21 05/12/25 History solution (Xolair) pregabalin 300 mg capsule 300 mg PO HS 06/30/21 05/12/25 History blood-glucose meter (VigLinkuch #1 ea 11/18/21 04/16/25 Rx Verio Flex Start kit) lidocaine 5 % topical ointment 1 applic topical BID PRN pain #30 12/24/21 05/12/25 Rx grams fluticasone fur. 100 mcg-umeclid 1 inh inhalation HS 05/25/22 05/12/25 History 62.5 mcg-vilant 25 mcg inhalat.powder (Trelegy Ellipta) epinephrine 0.3 mg/0.3 mL 0.3 mg (0.3 mL) IM Q10M PRN 09/21/22 05/12/25 Rx injection, auto-injector (EpiPen) Anaphylaxis #2 ea lancets 33 gauge (OneTouch Delica #100 ea 07/13/23 04/16/25 Rx Plus Lancet) syringe with needle, safety 3 mL #12 ea 10/09/23 04/16/25 Rx 25 gauge x 1" (BD Integra Syringe) pregabalin 100 mg capsule 100 mg PO BID 01/11/24 05/12/25 History theanine 100 mg capsule 400 mg PO HS 01/11/24 05/12/25 History Dexcom G6 Sensor (blood-glucose #3 ea 01/30/24 04/16/25 Rx sensor) lorazepam 1 mg tablet 1 mg PO TID PRN anxiety #90 tabs 08/21/24 05/12/25 Rx venlafaxine 150 mg 150 mg PO HS 08/21/24 05/12/25 History capsule,extended release 24 hr Dexcom G6 Transmitter #1 ea 08/27/24 04/16/25 Rx (blood-glucose transmitter) glucagon 3 mg/actuation nasal 3 mg intranasal UD PRN Hypoglycemia 09/09/24 05/12/25 History spray (Baqsimi) blood sugar diagnostic (OneTouch #25 ea 09/12/24 04/16/25 Rx Verio test strips) celecoxib 200 mg capsule (Celebrex) 200 mg PO HS Pain 01/28/25 05/12/25 History Ozempic 1 mg/dose (4 mg/3 mL) 1 mg (0.75 mL) subcut Q7D #9 mL 03/19/25 05/12/25 Rx subcutaneous pen injector (semaglutide) linaclotide 145 mcg capsule 145 mcg PO DAILY #90 caps 03/25/25 05/12/25 Rx (Linzess) verapamil 120 mg tablet,extended 120 mg PO HS #90 tabs 03/25/25 05/12/25 Rx release atorvastatin 40 mg tablet 40 mg PO HS #90 tabs 03/28/25 05/12/25 Rx cyanocobalamin (vitamin B-12) 1,000 mcg subcut Q30D #10 mL 03/28/25 05/12/25 Rx 1,000 mcg/mL injection solution venlafaxine 75 mg capsule,extended 75 mg PO HS #90 caps 03/28/25 05/12/25 Rx release 24 hr (Effexor XR) sucralfate 100 mg/mL oral 10 ml PO QID 3 months #3,600 mL 03/31/25 05/12/25 Rx suspension (Carafate) amitriptyline 10 mg tablet 20 mg (2 x 10 mg) PO HS #180 tabs 04/01/25 05/12/25 Rx estradiol 2 mg tablet 2 mg PO HS #90 tabs 04/02/25 05/12/25 Rx ondansetron 4 mg disintegrating 4 mg PO Q8H PRN Nausea #30 tabs 04/06/25 05/12/25 Rx tablet rimegepant 75 mg disintegrating 75 mg PO ONCE PRN migraine 04/06/25 05/12/25 Rx tablet (Nurtec ODT) headache #8 tabs peg 3350-sod sulf,[id number] See Rx Instructions PO .COMPLEX #2 04/14/25 05/12/25 Rx 178.7-7.3-0.5-1.12-0.9 gram oral mL soln (Suflave) buprenorphine HCl 300 mcg buccal 300 mcg buccal Q12H 04/16/25 05/12/25 History film (Belbuca) oxycodone 5 mg tablet 5 mg PO BID PRN Breakthrough Pain 04/16/25 05/12/25 History cholecalciferol (vitamin D3) 125 250 mcg PO DAILY 04/22/25 05/12/25 History mcg (5,000 unit) tablet (Vitamin D3) famotidine 40 mg tablet 40 mg PO BID 04/22/25 05/12/25 History ferrous sulfate 325 mg (65 mg 325 mg PO DAILY 04/22/25 05/12/25 History iron) tablet,delayed release esomeprazole magnesium 40 mg 40 mg PO BID 05/12/25 05/12/25 History capsule,delayed release (Nexium) Patient History Medical History Abnormal weight gain Anastomotic ulcer Anemia s/p iron infusions in past no recent issues Anxiety and depression Arthritis Asthma Cervicalgia Chronic back pain Diabetes mellitus, type 2 Fibromyalgia GERD (gastroesophageal reflux disease) well controlled and stable History of blood transfusion x2, after and after hysterectomy (required 5 units post up due to heavy bleeding) History of CVA with residual deficit (05/21/22) Received tPA in ED; no residual effects Follows with [place] neuro History of kidney stones No recent issues HLD (hyperlipidemia) Hx of renal calculi Hypoglycemia after GI (gastrointestinal) surgery IBS (irritable bowel syndrome) Intermittent palpitations R/t anxiety per patient Migraine Mild sleep apnea No device Neuropathy Hands/feet Peptic ulcer disease Postsurgical dumping syndrome After gastric bypass surgery "directly coorelated with my diabetic problems" per records PTSD (post-traumatic stress disorder) Restless leg syndrome Seasonal allergies Surgical History H/O cystoscopy x4 H/O gastric bypass (2014) [id number] H/O lumbar discectomy (2023) laminectomy and discectomy H/O tubal ligation x2 H/O: x4 History of anesthesia reaction slow to wake up History of cardiac cath 2014- [facility] prior to gastric bypass, no stents 2018- no stents History of cholecystectomy History of colonoscopy (12/08/20) History of dilatation and curettage x3 History of esophagogastroduodenoscopy (EGD) (10/16/24) History of hysterectomy (2017) History of lithotripsy History of lumbar spinal fusion (2007) L5-S1, 2008 History of placement of ear tubes History of radiofrequency ablation (RFA) of nerve of cervical spine x4 History of reversal of tubal ligation History of tonsillectomy and adenoidectomy History of total hysterectomy with bilateral salpingo-oophorectomy (BSO) History of wisdom tooth extraction Previous back surgery nerve blocks S/P cubital tunnel release left elbow Spinal cord stimulator status (09/13/24) x6 surgeries total Removal SCS (02/11/25): Grade 2 view, MAC#3, ETT 7.0 at [facility] Family History Mother Diabetes DM Type 2 Family history of reaction to anesthesia vomiting Father Diabetes DM Type 2 Heart disease Hypertension Grandfather (Paternal) Diabetes DM Type 2 Grandmother (Maternal) Diabetes DM Type 2 Grandmother (Paternal) Hypertension Aunt Hypertension Grandfather (Maternal) Bone cancer Family/Other Breast cancer Maternal Great Aunt Other Cancer Denies family history of Ovarian cancer Prostate cancer Myocardial infarction Colorectal cancer Social History Smoking Status: Current every day smoker Tobacco Type: Cigarettes Age Started Using Tobacco: 12; packs per day: 1; Cigarettes Per Day: 1 PPD; Second Hand Exposure: No; Do You Dip or Chew Tobacco: No; Tobacco Cessation Education Requested by Patient: No Hx Alcohol Use: No Hx Substance Use: No Preferred Language: Zimbabwean Communication Ability: Effective Visual Impairment: No Limitations Digital Traffic Coordinator Required: No Beliefs That Will Affect Care: None marital status: Current Living Situation: Significant Other Current Living Situation Comment: Lives with and 4 kids current occupational status: disabled current occupation: health care admin How many Children do You have: 4 Other Information That Helps Us Care for You: No Feels Safe at Home: Yes Safety Concerns: Feels Safe At This Time Childhood Exposure to Second-Hand Smoke: No Dental Care, Regularly: Yes Sunscreen Use: No Assistive Devices: Contacts and Glasses Review of Systems Review of Systems: All systems reviewed & are unremarkable except as noted in HPI & below Physical Exam Physical Exam: General: Fatigued in bed but no acute distress. Nondiaphoretic, well-developed, well-nourished. Skin: The skin was warm, dry. No rashes or peripheral edema noted. Cardiac: Regular rate and rhythm without murmurs gallops or rubs. Pulm: Diminished at bases bilaterally but otherwise clear to auscultation without wheezes, rales or rhonchi. Normal respiratory effort. 98% on 2 L NC. Abdominal: Soft, nontender, nondistended. Neuro: A&O x3. No focal neurological deficits. Normal sensation and strength in all extremities. Neck: In postop cervical collar with drain present. Results & Data Results & Data Vital Signs (Past 12 Hours) Vital Signs Temp Pulse Pulse Resp BP BP Pulse Ox 05/12/25 11:00 97.7 F 69 16 112/68 95 05/12/25 10:30 98.6 F 73 16 113/72 96 05/12/25 10:15 67 12 118/64 96 05/12/25 10:05 98.1 F 65 12 115/65 96 05/12/25 09:55 66 12 113/63 97 05/12/25 09:45 64 12 118/54 L 97 05/12/25 09:35 66 12 115/66 93 05/12/25 09:25 63 12 121/68 98 05/12/25 09:15 62 12 121/70 99 05/12/25 09:05 67 14 134/71 100 05/12/25 08:55 96.8 F L 76 14 132/76 96 05/12/25 06:42 98.2 F 67 20 121/65 98 O2 Del Method O2 Flow Rate 05/12/25 11:00 Nasal Cannula 2 05/12/25 10:30 Nasal Cannula 2 05/12/25 10:15 Nasal Cannula 2 05/12/25 10:05 Nasal Cannula 2 05/12/25 09:55 Nasal Cannula 2 05/12/25 09:45 Nasal Cannula 2 05/12/25 09:35 Room Air 05/12/25 09:25 Oxymask 2 05/12/25 09:15 Oxymask 5 05/12/25 09:05 Oxymask 5 05/12/25 08:55 Oxymask 10 05/12/25 06:42 Room Air Diagnostic Findings Reviewed C-spine x-ray Cervical Spine X-Ray 05/12/25 07:45 FL cervical 2-3V CLINICAL HISTORY: C6-C7 D/F COMPARISON STUDY: None FLUOROSCOPY TIME: 16 seconds FLUOROSCOPY IMAGES: 4 EXPOSURE DOSE: 3 mGy FINDINGS: Fluoroscopy was provided for anterior plate-screw fusion of C6-7. IMPRESSION: Intraoperative fluoroscopy. ACT 112: Negative or not required by law. Electronically signed by: Yair Raymundo M.D. 05/12/2025 9:29 AM PG Care Time/CCT Total # of Minutes Spent Total Time Spent with Patient: Total time spent is greater than 50% in coordination of care (as documented) at patient's floor/unit and/or counseling patient: Coding Level of Care Code 94706 IN/OBS CONSULT LVL 4,60M Diagnoses Cervical spondylosis with radiculopathy M47.22 Chronic GERD K21.9 Asthma J45.909 Hyperlipidemia associated with type 2 diabetes mellitus E11.69; E78.5
[2025-05-12] MEDS ORDERED: GLUCOSE 10 TAB/TUBE PO PRN (11:30)
[2025-05-12] MEDS ORDERED: GLUCOSE 40% GEL 15 GM TUBE PO PRN (11:30)
[2025-05-12] MEDS ORDERED: GLUCAGON FOR INJ 1 MG VIAL SQ PRN (11:30)
[2025-05-12] MEDS ORDERED: CARBOHYDRATES FOR HYPOGLYCEMIA PO PRN (11:30)
[2025-05-12] MEDS ORDERED: DEXTROSE 50% 50 ML SYRINGE IV PRN (11:30)
[2025-05-12] MEDS: COUGH DROP (SUGAR FREE) LOZ 24 LOZ/1 BOX BUCCAL ONE (12:03)
[2025-05-12] MEDS: SUCRALFATE 1 GM/10 ML UDC PO SCH (12:05)
[2025-05-12] MEDS: MONTELUKAST SODIUM 10 MG TABLET PO SCH (12:06)
[2025-05-12] MEDS: FAMOTIDINE 40 MG TABLET PO SCH (12:06)
[2025-05-12] MEDS: FERROUS SULFATE 325 MG TAB PO SCH (12:06)
[2025-05-12] MEDS: LINACLOTIDE 145 MCG CAPSULE PO SCH (12:06)
[2025-05-12] MEDS: CHOLECALCIFEROL 125 MCG (5,000 UNITS) TAB PO SCH (12:06)
[2025-05-12] MEDS: INSULIN ASPART PER UNIT CHARGE SC SCH (12:09)
[2025-05-12] MEDS: NICOTINE 21 MG/24 HR TDSY TD SCH (12:17)
--- NOTE | 2025-05-12 12:41 | Pharmacy Report ---
Pharmacy Glycemic Short Note 2 - Date of Service May 12, 2025 - Glycemic Short BSG Results (Last 24 hours): 05/12/25 05/12/25 05/12/25 06:33 09:08 12:01 POC Glucose 86 102 H 184 H OUTPATIENT ANTIDIABETIC REGIMEN: * Ozempic 1 mg SC weekly HbA1c: 6.1% (04/22/25) ASSESSMENT: * CI is a 45 year old female POD #0 s/p spinal surgery * Received 8 mg IV dexamethasone in OR, ordered 6 mg IV daily x 3 doses postoperatively * Well-controlled T2DM as an outpatient on Ozempic only * Preop blood sugar of 86 mg/dL and postop blood sugar of 102 mg/dL * Will hold off on basal for now, but will order scale at dinner to give if needed PLAN FOR INPATIENT GLYCEMIC CONTROL: * Basal insulin * Lantus 0-10-20 units SC x 1 w/ dinner * Reassess in AM * Bolus insulin * NovoLog per scale ACHS or Q6hrs while NPO * Goal Range: Low 110 mg/dL - High 140 mg/dL * Correction Factor: 25 mg/dL/unit * Nutritional / Prandial insulin per carb ratio of 1 unit per 8 grams CHO consumed
[2025-05-12] MEDS: HYDROmorphone INJ 1 MG/ML SYRINGE IV PRN (13:52)
--- NOTE | 2025-05-12 15:17 | Anesthesiology Progress Note ---
Date of Service May 12, 2025 Anesthesia Post Procedure Vital Signs Vital Signs: Temp Pulse Pulse Resp BP BP Pulse Ox 05/12/25 13:34 36.6 C 79 16 113/71 98 05/12/25 13:10 70 18 96 05/12/25 12:18 70 17 113/72 97 05/12/25 11:17 36.7 C 66 16 105/66 98 05/12/25 11:00 36.5 C 69 16 112/68 95 05/12/25 10:30 37.0 C 73 16 113/72 96 05/12/25 10:15 67 12 118/64 96 05/12/25 10:05 36.7 C 65 12 115/65 96 05/12/25 09:55 66 12 113/63 97 05/12/25 09:45 64 12 118/54 L 97 05/12/25 09:35 66 12 115/66 93 05/12/25 09:25 63 12 121/68 98 05/12/25 09:15 62 12 121/70 99 05/12/25 09:05 67 14 134/71 100 05/12/25 08:55 36 C L 76 14 132/76 96 05/12/25 06:42 36.8 C 67 20 121/65 98 O2 Del Method O2 Flow Rate 05/12/25 13:34 Nasal Cannula 2 05/12/25 13:10 Nasal Cannula 2 05/12/25 12:18 Nasal Cannula 2 05/12/25 11:17 Nasal Cannula 2 05/12/25 11:00 Nasal Cannula 2 05/12/25 10:30 Nasal Cannula 2 05/12/25 10:15 Nasal Cannula 2 05/12/25 10:05 Nasal Cannula 2 05/12/25 09:55 Nasal Cannula 2 05/12/25 09:45 Nasal Cannula 2 05/12/25 09:35 Room Air 05/12/25 09:25 Oxymask 2 05/12/25 09:15 Oxymask 5 05/12/25 09:05 Oxymask 5 05/12/25 08:55 Oxymask 10 05/12/25 06:42 Room Air Pain Intensity Lower Neck: Pain Intensity: 6 Neck: Pain Intensity: 7 Transfer of Care Handoff Completed per policy Notes Mental Status: alert / awake / arousable Patient Amnestic to Procedure: Yes Nausea / Vomiting: adequately controlled Pain: adequately controlled Airway Patency, RR, SpO2: stable & adequate BP & HR: stable & adequate Hydration State: stable & adequate Anesthetic Complications: no major complications apparent and Pt Satisfied with anesthetic care
[2025-05-12] MEDS ORDERED: Nursing to Pharmacy Communication SCH (16:00)
[2025-05-12] MEDS: LANTUS PER UNIT CHARGE SC ONE (16:55)
[2025-05-12] MEDS: PREGABALIN 100 MG CAP PO SCH (17:03)
[2025-05-12] MEDS ORDERED: BUPRENORPHINE 300 MCG SL SCH ×2 (18:00→21:00)
[2025-05-12] MEDS: BUPRENORPHINE 300 MCG SL SCH (18:23)
[2025-05-12] MEDS ORDERED: NON-FORMULARY MEDICATION (Fluticasone-Umeclidin-Vilanter [Trelegy Ellipta] 100-62.5-25 mcg INH SCH (21:00)
[2025-05-12] MEDS: PREGABALIN 150 MG CAP PO SCH (21:17)
[2025-05-12] MEDS: LORazepam 0.5 MG TAB PO PRN (21:17)
[2025-05-12] MEDS: ACETAMINOPHEN 500 MG TAB PO PRN (21:17)
[2025-05-12] MEDS: DOCUSATE SODIUM/SENNA 50/8.6MG TAB PO SCH (21:17)
[2025-05-12] MEDS: VENLAFAXINE HCL XR 75 MG CAPXR PO SCH (21:18)
[2025-05-12] MEDS: VERAPAMIL HCL 120 MG TABCR PO SCH (21:18)
[2025-05-12] MEDS: FAMOTIDINE 20 MG TAB PO PRN (21:18)
[2025-05-12] MEDS: AMITRIPTYLINE HCL 10 MG TAB PO SCH (21:18)
[2025-05-12] MEDS: ATORVASTATIN 40 MG TAB PO SCH (21:19)
[2025-05-12] MEDS: VENLAFAXINE HCL XR 150 MG CAPXR PO SCH (21:21)
[2025-05-12] MEDS: UMECLIDINIUM/VILANTEROL 62.5/25MCG 7 PUFFS/INHALER INH SCH (21:22)
[2025-05-12] MEDS: FLUTICASONE FUROATE 100MCG 14 PUFFS/INHALER INH SCH (21:22)
[2025-05-13] MEDS: POLYETHYLENE (MIRALAX) 17 GM PACK PO SCH (05:52)
[2025-05-13 05:54] LABS: Hematocrit (blood only) 35.3 % (37.0-47.0); Hemoglobin 11.9 g/dl (12.0-16.0); Mean Corpuscular Hemoglobin 30.9 pg (25.0-34.0); Mean Corpuscular Volume 91.7 fL (80.0-100.0); Platelet Count 249 K/uL (130-400); RDW Standard Deviation 46.5 fL (36.4-46.3); Red Blood Count 3.85 M/uL (4.20-5.40); White Blood Count 13.30 K/ul (4.8-10.8)
[2025-05-13 06:09] LABS: Anion Gap 6.0 (3-11); Blood Urea Nitrogen 8.0 mg/dl (6-23); Calcium 8.0 mg/dl (8.6-10.3); Carbon Dioxide 29.0 mmol/L (21-32); Chloride 105.0 mmol/L (98-107); Creatinine Clr Calc Pharmacy 155.1 ml/min; Glucose 85.0 mg/dl (70-99(Fasting)); Potassium 3.4 mmol/L (3.5-5.1); Sodium 140.0 mmol/L (136-145)
[2025-05-13] MEDS: REMOVE NICODERM PATCH SCH (08:29)
[2025-05-13] MEDS: dexAMETHasone 6 MG in SYRINGE 0 ML IV SCH (08:29)
[2025-05-13 09:15] VITALS: BP 116/75; TEMP 99; O2SAT 97
[2025-05-13] MEDS: POTASSIUM CHLORIDE 10 MEQ TABCR PO STA (09:20)
--- NOTE | 2025-05-13 10:23 | Discharge Summary ---
Date of Service May 13, 2025 Admission HPI Per Admitting Provider This is a 45-year-old female presents for persistent neck and arm pain after failing course of nonoperative care is here for surgical invention. Principal Diagnosis Cervical spondylosis with radiculopathy Discharge Data Allergies Allergy/AdvReac Type Severity Reaction Status Date / Time banana Allergy Severe Anaphylaxis Verified 05/12/25 06:34 kiwi Allergy Severe Anaphylaxis Verified 05/12/25 06:34 venom-honey bee Allergy Severe Anaphylaxis Verified 05/12/25 06:34 watermelon Allergy Severe Anaphylaxis Verified 05/12/25 06:34 latex Allergy Intermediate Rash Verified 05/12/25 06:34 Consultations 05/12/25 10:53 Consult Hospitalist Routine Procedures Performed Operation Date: 05/12/25 07:45 Actual Procedures p C6-C7 Anterior Cervical Discectomy and Fusion, Spinal Cord Monitoring(Not Applicable) - Darío Siu DO Ordered Studies 05/12/25 07:45 FL cervical 2-3V Routine Hospital Course (1) Cervical spondylosis with radiculopathy: Patient underwent anterior cervical discectomy and fusion tolerated this well was taken to the orthopedic for postoperative. Postop patient progressed appropriately. Swallowing well. No hoarseness. Arm symptoms improved. Excellent strength testing. Simply discharged home. Discharge orders and instructions are on the chart for further view. Total Time Total Time Spent Total Time Spent (In Minutes): 20 minutes Discharge Plan Discharge Items Patient Disposition: Home - Self-Care Reason For Visit: Right Cervical Radiculopathy Discharge Diagnosis: Cervical spondylosis with radiculopathy Activity: As commented below Non-emergency contact: Primary Care Provider Call non-emergency contact if: you have any medication questions Follow-up/Referrals: Blanca Prajapati CRNP [Primary Care Provider] - Diet: Regular Addtl Attending Provider Instructions: ACTIVITY RECOMMENDATIONS: SELF CARE INSTRUCTIONS AFTER CERVICAL FUSIONS 1. No smoking. Smoking drastically decreases the chance of a solid fusion. 2. No bending, lifting more than 5 pounds, or twisting (roll like a log when turning in bed). 3. You may shower 3 days after surgery. Thoroughly dry wound. Do not soak in the tub. 4. Cervical collar: Must be worn at all times including sleeping. You may remove the brace only to bath, eat and if you are sitting in a recliner. 5. Please walk as much as you can for exercise. Gradually increase the distance that you walk as your endurance increases. 6. You may return to previous diet. SPECIAL CARE INSTRUCTIONS: VERY IMPORTANT TO READ AND REVIEW A. Do not take any anti-inflammatory medications (i.e. Indocin, Advil, Aspirin, Naprosyn, Aleve, Motrin, etc.) as these may inhibit the chance of a solid fusion. Tylenol is okay to take. B. Your surgical incision has been closed with a cosmetic suture under the skin that will dissolve in about 6 weeks. In 14 days, you can use a pair of clean scissors and cut the suture that is left outside of the skin at the ends of your incision. C. Complications are uncommon, but please contact us if you have any signs or symptoms of: 1. wound infection (fever higher than 102.5 degrees F, redness, separation of wound, drainage, or increasing pain from the incision) 2. blood clots in legs (pain, swelling, redness and warmth in legs) 3. urinary tract infection (fever higher than 102.5 degrees, burning upon urination or increased frequency of urination) 4. nerve problems (inability to walk on your toes or heels, numbness, loss of bowel or bladder control) 5. any other symptoms that concern you. D. Please call the office at if you have any concerns or questions about your operation or recovery. MANAGING PAIN AFTER SPINAL SURGERY 1. Narcotic medication is intended for short-term use and will be provided for surgical pain. Surgical pain usually lasts for a period of 4-6 weeks. Narcotic medication includes Percocet, Vicodin, Darvocet, Tylenol #3 or Lortab. 2. Longer-term pain is more appropriately treated with non-narcotic medication such as Tylenol ES. 3. Muscle spasm is not appropriately treated with narcotics. Muscle relaxers such as Soma, Flexeril or Skelaxin can be used along with Tylenol ES. 4. Remember that we all live with some "aches and pains". This is not unusual or uncommon after an injury or as we get older. 5. We will provide appropriate medication within the normal guidelines of their prescribed use. We will also be very cautious and aware of potential abuse and extended duration of patients' medication needs. 6. Please allow 2-3 days to process refills. Prescriptions will not be mailed but must be picked up at the office. FOLLOW UP VISIT: Keep your scheduled follow-up appointment. Any questions, please call the office at . Pending Studies at Discharge: No Stand-Alone Forms: My [facility], Smoking Cessation Medications and DC Order Prescriptions: New oxycodone 5 mg tablet 5 mg PO Q6H PRN (Reason: pain) Qty: 30 0RF Continued lidocaine 5 % ointment 1 applic topical BID PRN (Reason: pain) Qty: 30 0RF (DME) Dexcom G6 Sensor Device See Rx Instructions .Route Qty: 3 12RF Rx Instructions: Apply 1 sensor every 10 dyas (DME) Dexcom G6 Transmitter Device See Rx Instructions .Route Qty: 1 3RF Rx Instructions: Replace every 90 days (DME) OneTouch Verio test strips Strip See Rx Instructions .Route Qty: 25 12RF Rx Instructions: Test blood sugar 1 x daily Ozempic 1 mg/dose (4 mg/3 mL) pen injector 1 mg subcut Q7D Qty: 9 1RF Linzess 145 mcg capsule 145 mcg PO DAILY Qty: 90 3RF verapamil 120 mg tablet extended release 120 mg PO HS Qty: 90 3RF cyanocobalamin (vitamin B-12) 1,000 mcg/mL solution 1,000 mcg SUBCUT Q30D Qty: 10 0RF atorvastatin 40 mg tablet 40 mg PO HS Qty: 90 3RF venlafaxine [Effexor XR] 75 mg capsule,extended release 24hr 75 mg PO HS Qty: 90 0RF Rx Instructions: Take a 75 mg capsule in addition to a 150 mg capsule sucralfate [Carafate] 100 mg/mL suspension 10 ml PO QID 90 Days Qty: 3600 2RF Rx Instructions: swish in mouth and swallow; use after food/drink amitriptyline 10 mg tablet 20 mg PO HS Qty: 180 1RF Rx Instructions: TAKE 2 TABLETS BY MOUTH AT BEDTIME estradiol 2 mg tablet 2 mg PO HS Qty: 90 1RF ondansetron 4 mg tablet,disintegrating 4 mg PO Q8H PRN (Reason: Nausea) Qty: 30 0RF Nurtec ODT 75 mg tablet,disintegrating 75 mg PO ONCE PRN (Reason: migraine headache) Qty: 8 5RF Suflave 178.7-7.3-0.5 gram recon soln See Rx Instructions PO .COMPLEX Qty: 2 0RF Rx Instructions: orally; orally; TAKE FIRST DOSE AT 6 PM AND SECOND DOSE 6 HOURS PRIOR TO PROCEDURE BIN: [id number] PCN: [id number] GROUP: [id number] pregabalin 300 mg capsule 300 mg PO HS (DME) blood-glucose meter [CloudSwitch Verio Flex Start] Kit See Rx Instructions .Route Qty: 1 0RF Rx Instructions: As directed albuterol sulfate [Ventolin HFA] 90 mcg/actuation HFA aerosol inhaler 2 puff inhalation Q6H PRN (Reason: Shortness Of Breath) montelukast 10 mg tablet 10 mg PO QAM Xolair 150 mg recon soln 300 mg subcut Q28D Trelegy Ellipta 100-62.5-25 mcg blister with device 1 inh inhalation HS (DME) lancets [FundriseTouch Delica Plus Lancet] 33 gauge misc See Rx Instructions .ROUTE .MEDSUPPLY Qty: 100 5RF Rx Instructions: Check blood glucose once daily epinephrine [EpiPen] 0.3 mg/0.3 mL auto-injector 0.3 mg IM Q10M PRN (Reason: Anaphylaxis) Qty: 2 0RF Rx Instructions: for 2 doses pregabalin 100 mg capsule 100 mg PO BID theanine 100 mg capsule 400 mg PO HS (DME) BD Integra Syringe 3 mL 25 gauge x 1" syringe See Rx Instructions .Route Qty: 12 0RF Rx Instructions: As directed once a month with B12 injections lorazepam 1 mg tablet 1 mg PO TID PRN (Reason: anxiety) Qty: 90 0RF venlafaxine 150 mg capsule,extended release 24hr 150 mg PO HS Rx Instructions: Take a 75 mg capsule in addition to a 150 mg capsule famotidine 40 mg tablet 40 mg PO BID ferrous sulfate 325 mg (65 mg iron) tablet,delayed release (DR/EC) 325 mg PO DAILY celecoxib [Celebrex] 200 mg capsule 200 mg PO HS esomeprazole magnesium [Nexium] 40 mg capsule,delayed release(DR/EC) 40 mg PO BID Baqsimi 3 mg/actuation spray,non-aerosol 3 mg intranasal UD PRN (Reason: Hypoglycemia) cholecalciferol (vitamin D3) [Vitamin D3] 125 mcg (5,000 unit) tablet 250 mcg PO DAILY buprenorphine HCl [Belbuca] 300 mcg Film 300 mcg BUCCAL Q12H oxycodone 5 mg tablet 5 mg PO BID PRN (Reason: Breakthrough Pain) Discharge Orders: Discharge Order (Routine); Ordered 05/13/25 Ordered By: Darío Siu Admission Data Admit Date/Time: 05/12/25 08:51 Attending Provider: Darío Siu Admit Provider: Darío Siu Primary Care Provider: Blanca Prajapati Other Providers: Mile Longoria
[2025-05-13 11:47] VITALS: PULSE 71; RESP 16
--- NOTE | 2025-05-13 13:11 | Communication Note ---
Date of Service: May 13, 2025 Came to see patient and she was changing to go home. I came back later and she was discharged before I could see her. Low potassium replaced. Discussed care with RN. No acute issues, stable for dc to home
== END 2025-05-13 12:25 | disposition home or self-care (01) ==
LOC: ASU 06:12 → 3E 06:12